=== PATIENT | male | born 1955 | race Caucasian/White ===

== ENCOUNTER 2019-01-20 17:27 | Inpatient (IN) | payer BC ==
[~2019-01-20] VITALS: Ht 180.3 cm; Wt 124.0 kg
--- NOTE | 2019-01-20 18:06 | NUR ---
FIRST CONTACT WITH PT. PT SITTING UP IN [facility], SPEAKING WITH SPOUSE WITH EASE. PT REPORTS SUBSTERNAL CHEST PAIN WHICH RADIATES TO BOTH ARMS. AGGRAVATED BY ACTIVITY. NO RELIEVING FACTORS. PT DENIES DIZZINESS/DIAPHORESIS/NAUSEA ASSOCIATED WITH PAIN. +MILD SOB. HX OF PE/DVT. "THIS DOESN'T REALLY FEEL LIKE THAT THOUGH AND LAST TIME MY LEGS WERE REALLY SWOLLEN. THEY AREN'T NOW". BP/SPO2/ECG MONITORING IN PLACE. NSR ON MONITOR. IV ESTABLISHED, LABS DRAWN. SO AT BEDSIDE.
[2019-01-20] MEDS ORDERED: ASPI-515 PO (18:09)
[2019-01-20] MEDS ORDERED: ASPIRIN 81 MG TABLET CHEW ONE (18:21)
--- NOTE | 2019-01-20 18:24 | NUR ---
PT MEDICATED PER EMAR WITH ASA. PT DENIES CURRENT BLOOD THINNERS. PT REPORTS BEING ON XERALTO FOLLOWING INITIAL DX OF DVT/PE AND HAS SINCE BEEN TAKING ASA 81MG QHS. LAST DOSE LAST NIGHT.
[2019-01-20] MEDS ORDERED: ASPIRIN 81 MG TABLET CHEW PO ONE (18:30)
[2019-01-20 18:42] LABS: BASOPHILS # (AUTO) 0.09 x10^3/uL (0-0.1); BASOPHILS % (AUTO) 1 % (0-1); EOSINOPHILS # (AUTO) 0.26 x10^3/uL (0-0.4); EOSINOPHILS % (AUTO) 3 % (1-7); LYMPHOCYTES # (AUTO) 2.85 x10^3/uL (1-3.4); LYMPHOCYTES % (AUTO) 32 % (22-44); MD NO; MEAN CORPUSCULAR HEMOGLOBIN 35.5 pg (27.5-34.5); MEAN CORPUSCULAR HGB CONC 32.9 g/dL (33.2-36.2); MEAN CORPUSCULAR VOLUME 107.6 fL (81-97); MEAN PLATELET VOLUME 8.6 fL (7.4-10.4); MONOCYTES % (AUTO) 11 % (2-9); NEUTROPHILS # (AUTO) 4.71 x10^3/uL (1.8-6.8); NEUTROPHILS % (AUTO) 53 % (42-75); PLATELET COUNT 115 x10^3/uL (130-400); RED BLOOD COUNT 5.14 x10^6/uL (4.38-5.82); RED CELL DISTRIBUTION WIDTH 14.6 % (9.4-14.8)
[2019-01-20 18:53] LABS: ALANINE AMINOTRANSFERASE 129 U/L (12-78); ANION GAP 6 mmol/L (5-15); CALCIUM 8.9 mg/dL (8.5-10.1); CHLORIDE 110 mmol/L (98-107); CREATININE 1.29 mg/dL (0.7-1.3)
[2019-01-20 19:00] LABS: ALKALINE PHOSPHATASE 95 U/L (45-117); BILIRUBIN,TOTAL 0.4 mg/dL (0.2-1.0); TOTAL PROTEIN 6.7 g/dL (6.4-8.2); TROPONIN I 0.046 ng/mL (0.000-0.045)
[2019-01-20] MEDS ORDERED: SODIUM CHLORIDE FLUSH 10ML SYR IVF ONE (19:00)
[2019-01-20] MEDS ORDERED: NITROGLYCERIN OINT 2%, 1GM TP ONE ×2 (19:40→20:00)
[2019-01-20] MEDS ORDERED: SODIUM CHLORIDE FLUSH 10ML SYR IVF PRN (20:00)
--- NOTE | 2019-01-20 20:00 | NUR ---
DISCUSSION WITH ERP REGARDING TROP AND DDIMER. NO HEPARIN ORDERED AT THIS TIME. CTA ORDERED. PT/SO UPDATED TO POC (CT/ADMIT) AND DEMONSTRATES UNDERSTANDING
--- NOTE | 2019-01-20 20:26 | NUR ---
PT TO CT
--- NOTE | 2019-01-20 20:48 | NUR ---
REPORT TO JOHNIE, RN
[2019-01-20] MEDS ORDERED: HEPARIN 25,000 UNITS/500ML PMX 500 ML ONE (21:14)
[2019-01-20] MEDS ORDERED: HEPARIN 5,000 UNITS/ML, 1ML ONE (21:14)
[2019-01-20] MEDS ORDERED: HEPARIN 5,000 UNITS/ML, 1ML IV PRN (21:30)
[2019-01-20] MEDS ORDERED: HEPARIN 5,000 UNITS/ML, 1ML IV ONE (21:30)
[2019-01-20] MEDS ORDERED: HEPARIN 25,000 UNITS/500ML PMX 500 ML IV PRN (21:30)
--- NOTE | 2019-01-20 21:33 | NUR ---
DELAY IN TRANSPORT TO FLOOR TO START HEPARIN GTT. SECOND PIV PLACED. HEPARIN INITIATED AND CONFIRMED BY SECOND RN.
[2019-01-20 21:36] LABS: INTERNATIONAL NORMALIZED RATIO 1.05 (0.93-1.1)
[2019-01-20 22:01] VITALS: BP 162/78
[2019-01-21] MEDS ORDERED: ACETAMINOPHEN 325 MG TABLET PO PRN
[2019-01-21] MEDS ORDERED: ENALAPRILAT 1.25 MG/ML, 2ML IVPush PRN
[2019-01-21] MEDS ORDERED: DOCUSATE 100 MG CAPSULE PO PRN
[2019-01-21] MEDS ORDERED: LIDODERM 5% PATCH TD PRN
[2019-01-21] MEDS ORDERED: TEMAZEPAM 15 MG CAPSULE PO PRN
[2019-01-21] MEDS ORDERED: ONDANSETRON ODT 4 MG PO PRN
[2019-01-21] MEDS ORDERED: OMNIPAQUE 350 MG/ML, 100ML BOTTLE ONE (00:05)
[2019-01-21 01:51] LABS: TROPONIN I 0.031 ng/mL (0.000-0.045)
[2019-01-21 03:34] LABS: BASOPHILS # (AUTO) 0.06 x10^3/uL (0-0.1); BASOPHILS % (AUTO) 1 % (0-1); EOSINOPHILS % (AUTO) 4 % (1-7); LYMPHOCYTES % (AUTO) 37 % (22-44); MD NO; MEAN CORPUSCULAR HEMOGLOBIN 35.3 pg (27.5-34.5); MEAN CORPUSCULAR HGB CONC 32.9 g/dL (33.2-36.2); MEAN CORPUSCULAR VOLUME 107.2 fL (81-97); MEAN PLATELET VOLUME 8.3 fL (7.4-10.4); MONOCYTES # (AUTO) 1.06 x10^3/uL (0.2-0.8); MONOCYTES % (AUTO) 12 % (2-9); NEUTROPHILS # (AUTO) 4.16 x10^3/uL (1.8-6.8); NEUTROPHILS % (AUTO) 46 % (42-75); PLATELET COUNT 101 x10^3/uL (130-400); RED CELL DISTRIBUTION WIDTH 14.5 % (9.4-14.8)
[2019-01-21 03:42] LABS: ANION GAP 5 mmol/L (5-15); CALCIUM 8.6 mg/dL (8.5-10.1); CHLORIDE 112 mmol/L (98-107)
[2019-01-21 03:51] VITALS: BP 133/82
[2019-01-21 07:47] LABS: TROPONIN I 0.015 ng/mL (0.000-0.045)
[2019-01-21 08:28] VITALS: BP 160/97
[2019-01-21] MEDS: RIVAROXABAN 15 MG TABLET PO SCH ×2 (08:54→17:04)
[2019-01-21] MEDS ORDERED: ASPIRIN 81 MG TABLET EC PO SCH (09:00)
[2019-01-21] MEDS ORDERED: RIVA20TA PO (14:57)
[2019-01-21] MEDS ORDERED: RIVA15TA PO (14:57)
[2019-01-21 15:54] VITALS: BP 173/98
[2019-01-21 16:48] VITALS: BP 166/96
== END 2019-01-21 17:48 | disposition home or self-care (01) | DRG 176 ==
LOC: ED 18:50 → EDIP 19:44 → 5SO 21:37
PROVIDERS: ADMIT Internal Medicine; ATTEND Family Medicine
DX: I26.99 Other pulmonary embolism without acute cor pulmonale (principal); D68.69 Other thrombophilia; R74.0 Nonspecific elevation of levels of transaminase and lactic acid dehydrogenase [LDH]; E66.9 Obesity, unspecified; D75.89 Other specified diseases of blood and blood-forming organs; D69.6 Thrombocytopenia, unspecified; I11.9 Hypertensive heart disease without heart failure; R91.8 Other nonspecific abnormal finding of lung field; I07.1 Rheumatic tricuspid insufficiency; I20.8 Other forms of angina pectoris; Z86.718 Personal history of other venous thrombosis and embolism; Z82.3 Family history of stroke; Z90.89 Acquired absence of other organs; Z82.49 Family history of ischemic heart disease and other diseases of the circulatory system; Z68.38 Body mass index [BMI] 38.0-38.9, adult; Z86.711 Personal history of pulmonary embolism; Z79.899 Other long term (current) drug therapy
CPT/HCPCS: 36415; 71045; 71275; 80048; 80053; 83735; 83880; 84100; 84484; 85025; 85379; 85520; 85610; 85730; 93005; 93306; 99285; G0378; J1644; Q9967

== ENCOUNTER → 2019-06-19 | Outpatient (CLI) | payer BC ==
[~2019-06-19] MED LIST: ASPI-515 PO; RIVA15TA PO; RIVA20TA PO
== END | disposition home or self-care (01) ==
LOC: CFH 15:36
PROVIDERS: ATTEND Internal Medicine
DX: R91.8 Other nonspecific abnormal finding of lung field (principal); I10 Essential (primary) hypertension; R06.02 Shortness of breath; I26.99 Other pulmonary embolism without acute cor pulmonale
CPT/HCPCS: 71250